=== PATIENT | female | born 1955 | race Caucasian/White ===

== ENCOUNTER 2021-04-15 09:29 | Emergency (ER) | payer OTHER ==
[2021-04-15 10:09] LABS: Absolute Neutrophil Ct (ANC) 4.12 (1.4-6.9); BASOPHIL % 0.1 % (0.0-0.4); Basophil (Absolute #) 0.01 (0-0.4); Eosinophil % 2.9 % (0.00-5.0); Hematocrit 38.4 % (35-47); Hemoglobin 12.3 gm/dl (12.0-16.0); Lymphocyte (Absolute #) 1.59 (1.0-4.6); Lymphocytes % 23.5 % (24.0-44.0); Mean Cell Volume 94.3 fl (78-100); Mean Corpuscular Hemoglobin 30.2 pg (26-32); Mean Platelet Volume 9.8 fl (7.5-11.0); Monocyte (Absolute #) 0.86 (0.0-1.3); Monocytes % 12.7 % (0.0-12.0); Neutrophil % 60.8 % (36.0-66.0); Platelet Count 237 K/mm3 (150-450); Red Blood Count 4.07 M/mm3 (4.1-5.4); Red Cell Distribution Width 11.9 % (11.5-14.0); White Blood Count 6.8 K/mm3 (4.0-10.5)
[2021-04-15] MEDS ORDERED: Sodium Chloride 0.9% 1000 ML 1,000 ML IV STA (10:24)
[2021-04-15] MEDS ORDERED: Sodium Chloride 0.9% 1000 ML 1,000 ML ONE (10:26)
--- NOTE | 2021-04-15 10:30 | XRAY ---
Indication: Chest pain. Comparison: None Portable chest hyperinflated and clear. Heart and mediastinal structures within normal limits for AP portable technique. Bony thorax intact with mild osteopenia and minimal degenerative changes. Impression: Nonacute hyperinflated chest.
[2021-04-15 10:36] LABS: ALBUMIN 3.7 g/dL (3.5-5.0); ALKALINE PHOSPHATASE 212 U/L (38-126); ANION GAP 13.2 MEQ/L (5-15); BLOOD UREA NITROGEN 13 mg/dL (7-17); CHLORIDE 105 mmol/L (98-107); Calcium 9.7 mg/dL (8.4-10.2); Carbon Dioxide 27 mmol/L (22-30); Creatinine 1 0.31 mg/dL (0.52-1.04); EST GLOMERULAR FILTRATION RATE > 60.0 ML/MIN; Glucose 105 mg/dL (74-106); NT PRO BNP 179 pg/mL (0-900); Potassium 3.9 mmol/L (3.5-5.1); SGOT/AST 314 U/L (14-36); SGPT/ALT 274 U/L (0-35); SODIUM 141 mmol/L (137-145); Total Protein 6.6 g/dL (6.3-8.2)
--- NOTE | 2021-04-15 10:59 | ERPHSYRPT ---
- History of Present Illness Time Seen by Provider: 04/15/21 09:38 Historian: patient Exam Limitations: no limitations Patient Subjective Stated Complaint: Chest pain Triage Nursing Assessment: Patient ambulated back to ED and transferred self to bed. Patient A+O X3. Patient's skin pink, warm and dry. Patient complains of chest pain that started at 12 am. Patient states she was watching TV when the pain started and it hasn't gone away. Patient complains of left sided chest pain 5/10 constant dull aching pain. Lungs clear a/p miguel angel. Physician History: 66 years old female presented in the ER with chief complaint of left-sided chest pain sudden onset around midnight while watching TV. Constant dull aching mild to moderate intensity without any significant aggravating relieving factors. Denies any associated palpitations shortness of breath. No fever chills or cough reported. Patient is very anxious and denies any history of previous chest pains. Timing/Duration: hour(s) (9), constant, sudden Activities at Onset: rest Quality: aching, dullness Location: substernal Chest Pain Radiation: no radiation Severity of Pain-Max: moderate Severity of Pain-Current: moderate Modifying Factors: Improves With: nothing Associated Symptoms: denies symptoms Prior Chest Pain/Cardiac Workup: no prior chest pain, no prior cardiac workup Nitro Today/Relief: no nitro taken today Aspirin Treatment Today: no aspirin today Allergies/Adverse Reactions: aspirin Allergy (Mild, Verified 04/15/21 09:31) "MAKES ME FEEL LIKE IM FLOATING AND HURTS MY STOMACH" ibuprofen Allergy (Mild, Verified 04/15/21 09:31) Hx Tetanus, Diphtheria Vaccination/Date Given: Yes Hx Influenza Vaccination/Date Given: No Hx Pneumococcal Vaccination/Date Given: No Immunizations Up to Date: Yes Travel Risk - International Travel Have you traveled outside of the country in past 3 weeks: No - Coronavirus Screening Are you exhibiting any of the following symptoms?: No Close contact with a COVID-19 positive Pt in past 14-21 Days: No - Vaccine Status Have you recieved a Covid-19 vaccination: No - Review of Systems Constitutional: No Symptoms Eyes: No Symptoms Ears, Nose, & Throat: No Symptoms Respiratory: No Symptoms Cardiac: Chest Pain Abdominal/Gastrointestinal: No Symptoms Genitourinary Symptoms: No Symptoms Musculoskeletal: No Symptoms Skin: No Symptoms Neurological: No Symptoms Psychological: Anxiety Endocrine: No Symptoms Hematologic/Lymphatic: No Symptoms Immunological/Allergic: No Symptoms - Past Medical History Pertinent Past Medical History: Yes Neurological History: No Pertinent History ENT History: No Pertinent History Cardiac History: No Pertinent History Respiratory History: No Pertinent History Endocrine Medical History: No Pertinent History Musculoskeletal History: Arthritis GI Medical History: No Pertinent History History: No Pertinent History Psycho-Social History: No Pertinent History Female Reproductive Disorders: Cervical Cancer - Past Surgical History Past Surgical History: Yes Neuro Surgical History: No Pertinent History Cardiac: No Pertinent History Respiratory: No Pertinent History Gastrointestinal: No Pertinent History Genitourinary: No Pertinent History Musculoskeletal: No Pertinent History Female Surgical History: Hysterectomy, Tubal Ligation - Social History Smoking Status: Never smoker Exposure to second hand smoke: Yes Drug Use: none Patient Lives Alone: Yes - Female History Hx Last Menstrual Period: hysterectomy Hx Now: No - Nursing Vital Signs Nursing Vital Signs: Initial Vital Signs Temperature 98.8 F 04/15/21 09:32 Pulse Rate 100 H 04/15/21 09:32 Respiratory Rate 22 04/15/21 09:32 Blood Pressure 140/82 04/15/21 09:32 O2 Sat by Pulse Oximetry 96 04/15/21 09:32 Pain Scale Pain Intensity 0 - Physical Exam General Appearance: no apparent distress, alert Eye Exam: PERRL/EOMI, eyes nml inspection Ears, Nose, Throat Exam: normal ENT inspection Neck Exam: normal inspection, non-tender, supple, full range of motion Respiratory Exam: normal breath sounds, lungs clear Cardiovascular Exam: normal heart sounds, tachycardia Gastrointestinal/Abdomen Exam: soft, normal bowel sounds Back Exam: normal inspection, normal range of motion Extremity Exam: normal inspection, normal range of motion Neurologic Exam: alert, oriented x 3, cooperative Skin Exam: normal color, other (Multiple itch valdez/breakdown on torso/extremities.) SpO2 Interpretation: normal SpO2: 96 O2 Delivery: Room Air - Course EKG Interpreted by Me: RATE (120), Sinus Tach, NORMAL AXIS, NORMAL INTERVALS, Other (Tall T waves) Ordered Tests: Active Orders 24 hr Category Date Time Status Entry Level Installation Technician STAT Care 04/15/21 10:01 Active EKG-ER Only STAT Care 04/15/21 09:57 Active IV Insertion STAT Care 04/15/21 09:57 Active CHEST 1 VIEW (PORTABLE) Stat Exams 04/15/21 10:00 Completed CHEST WITH CONTRAST [CT] Stat Exams 04/15/21 10:35 Completed CBC W DIFF Stat Lab 04/15/21 09:45 Completed CMP Stat Lab 04/15/21 09:45 Completed D-DIMER QUANTITATIVE Stat Lab 04/15/21 09:45 Completed LIPASE Stat Lab 04/15/21 11:20 Completed NT PRO BNP Stat Lab 04/15/21 09:45 Completed TROPONIN Q3H Lab 04/15/21 09:45 Completed TROPONIN Q3H Lab 04/15/21 12:54 Completed TROPONIN Q3H Lab 04/15/21 16:00 Ordered TROPONIN Q3H Lab 04/15/21 19:00 Ordered TROPONIN Q3H Lab 04/15/21 22:00 Ordered Urine Triage Profile Stat Lab 04/15/21 11:09 Completed Medication Summary Discontinued Medications Generic Name Dose Route Start Last Admin Trade Name Freq PRN Reason Stop Dose Admin Doxycycline Hyclate 100 mg 04/15/21 13:27 04/15/21 13:48 Doxycycline Hyclate 100 Mg Tablet PO 04/15/21 13:28 100 mg STAT ONE Administration Doxycycline Hyclate Confirm 04/15/21 13:46 Doxycycline Hyclate 100 Mg Tablet Administered 04/15/21 13:47 Dose 100 mg .ROUTE .STK-MED ONE Sodium Chloride 1,000 mls @ 999 mls/hr 04/15/21 10:24 04/15/21 11:35 Sodium Chloride 0.9% 1000 Ml IV 04/15/21 11:24 Infused .Q1H1M STA Infusion Sodium Chloride Confirm 04/15/21 10:26 Sodium Chloride 0.9% 1000 Ml Administered 04/15/21 10:27 Dose 1,000 mls @ ud .ROUTE .STK-MED ONE Lab/Rad Data: Laboratory Result Diagrams 04/15/21 09:45 04/15/21 09:45 Laboratory Results 04/15/21 04/15/21 04/15/21 Range/Units 12:54 11:20 11:09 WBC (4.0-10.5) K/mm3 RBC (4.1-5.4) M/mm3 Hgb (12.0-16.0) gm/dl Hct (35-47) % MCV (78-100) fl MCH (26-32) pg MCHC (32-36) g/dl RDW (11.5-14.0) % Plt Count (150-450) K/mm3 MPV (7.5-11.0) fl Gran % (36.0-66.0) % Eos # (Auto) (0-0.5) Absolute Lymphs (auto) (1.0-4.6) Absolute Monos (auto) (0.0-1.3) Lymphocytes % (24.0-44.0) % Monocytes % (0.0-12.0) % Eosinophils % (0.00-5.0) % Basophils % (0.0-0.4) % Absolute Granulocytes (1.4-6.9) Basophils # (0-0.4) D-Dimer (215-500) ng/mL Sodium (137-145) mmol/L Potassium (3.5-5.1) mmol/L Chloride (98-107) mmol/L Carbon Dioxide (22-30) mmol/L Anion Gap (5-15) MEQ/L BUN (7-17) mg/dL Creatinine (0.52-1.04) mg/dL Estimated GFR ML/MIN Glucose (74-106) mg/dL Calcium (8.4-10.2) mg/dL Total Bilirubin (0.2-1.3) mg/dL AST (14-36) U/L ALT (0-35) U/L Alkaline Phosphatase (38-126) U/L Troponin I < 0.012 (0.000-0.034) ng/mL NT-Pro-B Natriuret Pep (0-900) pg/mL Serum Total Protein (6.3-8.2) g/dL Albumin (3.5-5.0) g/dL Lipase 67 (23-300) U/L Urine Opiates Level NEGATIVE (NEGATIVE) Ur Methadone NEGATIVE (NEGATIVE) Urine Barbiturates NEGATIVE (NEGATIVE) Ur Phencyclidine (PCP) NEGATIVE (NEGATIVE) Urine Amphetamine NEGATIVE (NEGATIVE) U Benzodiazepine Level NEGATIVE (NEGATIVE) Urine Cocaine NEGATIVE (NEGATIVE) Urine Marijuana (THC) NEGATIVE (NEGATIVE) 04/15/21 04/15/21 04/15/21 Range/Units 09:45 09:45 09:45 WBC (4.0-10.5) K/mm3 RBC (4.1-5.4) M/mm3 Hgb (12.0-16.0) gm/dl Hct (35-47) % MCV (78-100) fl MCH (26-32) pg MCHC (32-36) g/dl RDW (11.5-14.0) % Plt Count (150-450) K/mm3 MPV (7.5-11.0) fl Gran % (36.0-66.0) % Eos # (Auto) (0-0.5) Absolute Lymphs (auto) (1.0-4.6) Absolute Monos (auto) (0.0-1.3) Lymphocytes % (24.0-44.0) % Monocytes % (0.0-12.0) % Eosinophils % (0.00-5.0) % Basophils % (0.0-0.4) % Absolute Granulocytes (1.4-6.9) Basophils # (0-0.4) D-Dimer 973 H* (215-500) ng/mL Sodium 141 (137-145) mmol/L Potassium 3.9 (3.5-5.1) mmol/L Chloride 105 (98-107) mmol/L Carbon Dioxide 27 (22-30) mmol/L Anion Gap 13.2 (5-15) MEQ/L BUN 13 (7-17) mg/dL Creatinine 0.31 L (0.52-1.04) mg/dL Estimated GFR > 60.0 ML/MIN Glucose 105 (74-106) mg/dL Calcium 9.7 (8.4-10.2) mg/dL Total Bilirubin 1.10 (0.2-1.3) mg/dL AST 314 H (14-36) U/L ALT 274 H (0-35) U/L Alkaline Phosphatase 212 H (38-126) U/L Troponin I < 0.012 (0.000-0.034) ng/mL NT-Pro-B Natriuret Pep 179 (0-900) pg/mL Serum Total Protein 6.6 (6.3-8.2) g/dL Albumin 3.7 (3.5-5.0) g/dL Lipase (23-300) U/L Urine Opiates Level (NEGATIVE) Ur Methadone (NEGATIVE) Urine Barbiturates (NEGATIVE) Ur Phencyclidine (PCP) (NEGATIVE) Urine Amphetamine (NEGATIVE) U Benzodiazepine Level (NEGATIVE) Urine Cocaine (NEGATIVE) Urine Marijuana (THC) (NEGATIVE) 04/15/21 Range/Units 09:45 WBC 6.8 (4.0-10.5) K/mm3 RBC 4.07 L (4.1-5.4) M/mm3 Hgb 12.3 (12.0-16.0) gm/dl Hct 38.4 (35-47) % MCV 94.3 (78-100) fl MCH 30.2 (26-32) pg MCHC 32.0 (32-36) g/dl RDW 11.9 (11.5-14.0) % Plt Count 237 (150-450) K/mm3 MPV 9.8 (7.5-11.0) fl Gran % 60.8 (36.0-66.0) % Eos # (Auto) 0.20 (0-0.5) Absolute Lymphs (auto) 1.59 (1.0-4.6) Absolute Monos (auto) 0.86 (0.0-1.3) Lymphocytes % 23.5 L (24.0-44.0) % Monocytes % 12.7 H (0.0-12.0) % Eosinophils % 2.9 (0.00-5.0) % Basophils % 0.1 (0.0-0.4) % Absolute Granulocytes 4.12 (1.4-6.9) Basophils # 0.01 (0-0.4) D-Dimer (215-500) ng/mL Sodium (137-145) mmol/L Potassium (3.5-5.1) mmol/L Chloride (98-107) mmol/L Carbon Dioxide (22-30) mmol/L Anion Gap (5-15) MEQ/L BUN (7-17) mg/dL Creatinine (0.52-1.04) mg/dL Estimated GFR ML/MIN Glucose (74-106) mg/dL Calcium (8.4-10.2) mg/dL Total Bilirubin (0.2-1.3) mg/dL AST (14-36) U/L ALT (0-35) U/L Alkaline Phosphatase (38-126) U/L Troponin I (0.000-0.034) ng/mL NT-Pro-B Natriuret Pep (0-900) pg/mL Serum Total Protein (6.3-8.2) g/dL Albumin (3.5-5.0) g/dL Lipase (23-300) U/L Urine Opiates Level (NEGATIVE) Ur Methadone (NEGATIVE) Urine Barbiturates (NEGATIVE) Ur Phencyclidine (PCP) (NEGATIVE) Urine Amphetamine (NEGATIVE) U Benzodiazepine Level (NEGATIVE) Urine Cocaine (NEGATIVE) Urine Marijuana (THC) (NEGATIVE) - Progress Progress: re-examined Air Movement: good Progress Note: 04/15/21 13:43 66 years old is evaluated for left-sided chest pain. EKG shows sinus tach without any obvious ST elevations or depressions. She refused to have any pain medications. Lungs fairly clear to auscultation except for few wheezing. Chest x-ray negative for any acute findings. Negative troponins but has elevated D- dimer and have obtained CTA which ruled out pulmonary embolism. It did show some left-sided pneumonia. This is probably the cause of her chest pain. Offered her observation admission but she wanted to go home. So I have obtained second troponin is negative. Patient does not have any history of CAD in the past that she knows of. Patient is very anxious and does have history of anxiety confirmed by daughter. I would start her on doxycycline and will obtain COVID-19 test as daughter told me that patient is unvaccinated. We will give a inhaler as needed. Discussed signs symptoms of worsening needing return to ER which patient/daughter seemed understanding. Antibiotics given: Yes Counseled pt/family regarding: lab results, diagnosis, need for follow-up, rad results - Departure Departure Disposition: Home Clinical Impression: Pneumonia Qualifiers: Pneumonia type: due to unspecified organism Laterality: left Lung location: unspecified part of lung Qualified Code(s): J18.9 - Pneumonia, unspecified organism Condition: Stable Critical Care Time: No Referrals: FRANCINE CHAKRABORTY [Primary Care Provider] - (Call for appointment in 1-2 days.) Instructions: Pneumonia, Adult (DC), Angina (DC) Additional Instructions: Use inhaler as needed. Follow-up with primary care for reevaluation. Call cardiology for outpatient appointment and evaluation. Return to ER for worsening chest pain or if having difficulty breathing/persistent fever chills. Follow contact/droplet precautions until your Covid test is back. Prescriptions: Albuterol 8 gm Mdi Hfa [Ventolin Hfa MDI] 8 gm IH Q4H #1 inh Doxycycline Hyclate 100 mg [Vibramycin 100 MG] 100 mg PO BID #19 tab
--- NOTE | 2021-04-15 12:16 | XRAY ---
Indication: Chest pain and elevated d-dimer. Multiple contiguous axial images obtained through the chest using 100 cc Isovue 370 contrast and PE protocol. Comparison: None There is adequate opacification of the pulmonary arteries to include the lobar and segmental branches. Study slightly degraded by respiration artifact. No pulmonary embolus. Heart not enlarged. Aorta is normal in course and caliber. Tiny subcarinal calcified node. No pathologic mediastinal/hilar lymphadenopathy. Lungs demonstrates 1.8 x 4.0 cm patchy anterior medial left upper lobe consolidating airspace disease. Just lateral to this is a 7 mm indeterminant noncalcified nodule. Incidental peripheral right middle lobe fibrosis/scarring, and tiny right upper/right lower lobe peripheral calcified granulomas. No effusion or pneumothorax. Bony thorax intact. Limited upper abdomen demonstrates tiny gravel/stones in a mildly distended gallbladder. Impression: 1. Negative pulmonary embolus. 2. Medial left upper lobe consolidating airspace disease. 3. 7 mm left upper lobe noncalcified nodule. Finding possibly granulomatous as there is old granulomatous disease elsewhere. 4. Mildly distended gallbladder with tiny gravel/stones.
[2021-04-15 13:10] VITALS: PULSE 100
[2021-04-15] MEDS ORDERED: Vibramycin 100 MG PO ONE (13:27)
[2021-04-15 13:34] LABS: Amphetamine,Urine NEGATIVE (NEGATIVE); Barbiturate,Urine NEGATIVE (NEGATIVE); Benzodiazepine,Urine NEGATIVE (NEGATIVE); Cocaine,Urine NEGATIVE (NEGATIVE); Methadone,Urine NEGATIVE (NEGATIVE); Opiate,Urine NEGATIVE (NEGATIVE); PCP,Urine NEGATIVE (NEGATIVE); THC,Urine NEGATIVE (NEGATIVE)
[2021-04-15] MEDS ORDERED: Vibramycin 100 MG ONE (13:46)
[2021-04-15 13:53] VITALS: BP 123/80; O2SAT 96
== END 2021-04-15 14:00 | disposition home or self-care (01) ==
LOC: ED 09:29
DX: J18.9 Pneumonia, unspecified organism (principal)
CPT/HCPCS: 36000; 36415; 71045; 71260; 80053; 80307; 83690; 83880; 84484; 85025; 85379; 93005; 93041; 96360; 99284; U0003; A9270-GY

== ENCOUNTER 2023-12-01 23:04 | Emergency (ER) | payer MEDICARE ==
--- NOTE | 2023-12-01 23:10 | ERPHSYRPT ---
- History of Present Illness Time Seen by Provider: 12/01/23 23:10 Source: patient, family Exam Limitations: no limitations Physician History: This is a right-handed 68-year-old white female patient of Dr. Hammer who was walking her dogs this evening and she went to try to hot die picker a stray cat the stray cat bit her on the dorsal aspect of her left hand. There was bruising and swelling present. The patient's tetanus status not up-to-date. Patient is allergic to aspirin and ibuprofen only. Timing/Duration: today Quality: painful Severity: moderate Location: hands (Left hand, dorsal aspect) Possible Causes: other (Cat bite) Associated Symptoms: denies symptoms Allergies/Adverse Reactions: aspirin Allergy (Mild, Verified 04/15/21 09:31) "MAKES ME FEEL LIKE IM FLOATING AND HURTS MY STOMACH" ibuprofen Allergy (Mild, Verified 04/15/21 09:31) Hx Tetanus, Diphtheria Vaccination/Date Given: Yes Hx Influenza Vaccination/Date Given: No Hx Pneumococcal Vaccination/Date Given: No Travel Risk - International Travel Have you traveled outside of the country in past 3 weeks: No - Emerging Infectious Disease Are you exhibiting symptoms associated with any current EIDs: No - Review of Systems Constitutional: No Symptoms Eyes: No Symptoms Ears, Nose, & Throat: No Symptoms Respiratory: No Symptoms Cardiac: No Symptoms Abdominal/Gastrointestinal: No Symptoms Genitourinary Symptoms: No Symptoms Musculoskeletal: Other (Cat bite dorsal aspect left hand) Skin: Other (Cat bite dorsal aspect left hand) Neurological: No Symptoms Psychological: No Symptoms Endocrine: No Symptoms Hematologic/Lymphatic: No Symptoms Immunological/Allergic: No Symptoms All Other Systems: Reviewed and Negative - Past Medical History Pertinent Past Medical History: Yes Neurological History: No Pertinent History ENT History: No Pertinent History Cardiac History: No Pertinent History Respiratory History: No Pertinent History Endocrine Medical History: No Pertinent History Musculoskeletal History: Arthritis GI Medical History: No Pertinent History History: No Pertinent History Psycho-Social History: No Pertinent History Female Reproductive Disorders: Cervical Cancer - Past Surgical History Past Surgical History: Yes Neuro Surgical History: No Pertinent History Cardiac: No Pertinent History Respiratory: No Pertinent History Gastrointestinal: No Pertinent History Genitourinary: No Pertinent History Musculoskeletal: No Pertinent History Female Surgical History: Hysterectomy, Tubal Ligation - Social History Smoking Status: Never smoker Exposure to second hand smoke: Yes Drug Use: none Patient Lives Alone: Yes - Nursing Vital Signs Nursing Vital Signs: Initial Vital Signs Temperature 98.6 F 12/01/23 23:20 Pulse Rate 105 H 12/01/23 23:20 Respiratory Rate 18 12/01/23 23:20 Blood Pressure 165/95 12/01/23 23:20 O2 Sat by Pulse Oximetry 98 12/01/23 23:20 Pain Scale Pain Intensity 10 - Physical Exam General Appearance: no apparent distress, alert, anxiety Eye Exam: PERRL/EOMI, eyes nml inspection Ears, Nose, Throat Exam: normal ENT inspection, moist mucous membranes Neck Exam: normal inspection, non-tender, supple, full range of motion Respiratory Exam: airway intact, No chest tenderness, No respiratory distress Gastrointestinal/Abdomen Exam: No tenderness Pelvic Exam: not done Rectal Exam: not done Back Exam: normal inspection, normal range of motion, No CVA tenderness, No vertebral tenderness Extremity Exam: normal range of motion, swelling (Dorsal aspect left hand), tenderness (Dorsal aspect left hand with some bruising in the palmar aspect of her left hand) Neurologic Exam: alert, oriented x 3, cooperative, time broker II-XII nml as tested, normal mood/affect, nml cerebellar function, nml station & gait, sensation nml Skin Exam: ecchymosis (Dorsal aspect left hand and mild ecchymosis in the palmar aspect of her left hand) Lymphatic Exam: No adenopathy SpO2 Interpretation: normal O2 Delivery: Room Air - Course Nursing assessment & vital signs reviewed: Yes Ordered Tests: Medication Summary Generic Name Dose Route Start Last Admin Trade Name Freq PRN Reason Stop Dose Admin Hydrocodone Bitart/Acetaminophen 2 tab 12/01/23 23:59 Hydrocodone/Apap 5/325 1 Tab Tablet PO 12/02/23 00:00 SENT HOME W/ PATIENT ONE Discontinued Medications Generic Name Dose Route Start Last Admin Trade Name Freq PRN Reason Stop Dose Admin Hydrocodone Bitart/Acetaminophen 1 tab 12/01/23 23:59 Hydrocodone/Apap 5/325 1 Tab Tablet PO 12/02/23 00:00 STAT ONE Amoxicillin/Clavulanate Potassium 500 mg 12/01/23 23:45 12/01/23 23:56 Amox Tr/Potassium Clavulanate 500 Mg Tablet PO 12/01/23 23:46 500 mg STAT ONE Administration Amoxicillin/Clavulanate Potassium Confirm 12/01/23 23:51 Amox Tr/Potassium Clavulanate 500 Mg Tablet Administered 12/01/23 23:52 Dose 500 mg .ROUTE .STK-MED ONE Diphtheria/Tetanus/Acell Pertussis 0.5 ml 12/01/23 23:45 12/01/23 23:56 Tdap --Diph,Pertuss(Acell),Tet Vac/Pf 0.5 Ml Vial IM 12/01/23 23:46 0.5 ml .ONCE ONE Administration Tetanus/Diphtheria Toxoids Adsorbed Confirm 12/01/23 23:52 Tetanus And Diphtheria Tox/Pf 0.5 Ml Vial Administered 12/01/23 23:53 Dose 0.5 ml IM .STK-MED ONE - Progress Progress: unchanged, pain not gone completely, re-examined Progress Note: 12/02/23 00:04 My medical decision making and the assignment of low complexity to this patient's medical issues based on review of the patient's past medical history, review of the patient's medication list, review the patient drug allergy list, history present illness and physical findings on examination. The workup in this patient does not include laboratory radiographic studies as they are not necessary in this patient's examination or treatment plan. Differential diagnosis includes but not limited to hematoma and cellulitis. Cellulitis would be unlikely since its only been a couple hours since the cat bite occurred. We will cover her with Augmentin. Counseled pt/family regarding: diagnosis, need for follow-up Medical Desision Making - Independent Historian Additional History obtained from: Family - Diagnostic Testing Diagnostic test were ordered, analyzed, and reviewed by me: No - Risk of complications The pt has a mod risk of morbidity or mortality based on: Need for prescription drug management - Departure Departure Disposition: Home Clinical Impression: Cat bite of hand Condition: Stable Critical Care Time: No Referrals: FRANCINE HAMMER [Primary Care Provider] - Follow up/PCP as directed Additional Instructions: Keep the site clean daily with antibacterial soap. Do not apply lotions or ointments or creams. May apply ice pack to the area 3 times a day for the first 48 hours and then alternate ice and heat. After you use the take-home pain medicine, you may use Tylenol medication every 4 hours. Return to the emergency department today in 12 to 16 hours for reassessment/reevaluation. Prescriptions: Amoxicillin/Potassium Clav [Augmentin 500-125 Tablet] 1 each PO TID 7 Days #21 tablet
[2023-12-01 23:28] VITALS: TEMP 98.6
[2023-12-01] MEDS ORDERED: Augmentin 500-125 Tablet ONE (23:51)
[2023-12-01] MEDS ORDERED: TENIVAC VIAL IM ONE (23:52)
[2023-12-01] MEDS: Augmentin 500-125 Tablet PO ONE (23:56)
[2023-12-01] MEDS: Adacel Vial IM ONE (23:56)
[2023-12-02] MEDS ORDERED: NORCO 5/325 MG ONE (00:06)
[2023-12-02] MEDS: NORCO 5/325 MG PO ONE ×2 (00:07)
[2023-12-02 00:20] VITALS: BP 154/75; PULSE 94; RESP 20; O2SAT 97
== END 2023-12-02 00:24 | disposition home or self-care (01) ==
LOC: ED 23:04
DX: S60.572A Other superficial bite of hand of left hand, initial encounter (principal); W55.01XA Bitten by cat, initial encounter; Y93.K1 Activity, walking an animal; Z23 Encounter for immunization
CPT/HCPCS: 90471; 90714; 90715; 99283; A9270-GY